=== PATIENT | female | born 1985 | race Hispanic/Latino ===

== ENCOUNTER 2018-05-07 21:56 | Emergency (ER) | payer OTHER ==
[2018-05-07 22:17] LABS: Bilirubin Negative (Negative); Blood, Urine Negative (Negative); Clarity Slightly Cloudy (Clear); Glucose, Urine (Dipstick) Negative (Negative); Leukocyte Negative (Negative); Nitrite Negative (Negative); Pregnancy Test - Urine (BHCG) POSITIVE (Negative); Pregu Control Background? CLEAR/WHITE (CLR/WHITE); Pregu Control Bar Appear? YES (CONTROL BAR); Protein, Urine (Dipstick) Negative (Neg-Trace)
== END 2018-05-07 22:53 | disposition home or self-care (01) ==
LOC: SCSER 21:56
DX: O26.891 Other specified pregnancy related conditions, first trimester (principal); R10.9 Unspecified abdominal pain; O99.341 Other mental disorders complicating pregnancy, first trimester; F41.9 Anxiety disorder, unspecified
CPT/HCPCS: 81003; 81025

== ENCOUNTER 2018-07-08 15:46 | Outpatient (CLI) | payer OTHER ==
--- NOTE | 2018-07-08 17:21 | ULT ---
OB ULTRASOUND: HISTORY: Size and dates. FINDINGS: A single live intrauterine gestation is seen with measurements corresponding to an estimated gestatio nal age of 24 weeks 1 day and an ANDRE of 10/27/2018. The estimated weight measures 672 g (1 lb 8 oz). measurements are as follows: BPD: 5.59 cm (23 weeks 1 day). HC: 21.99 cm (24 weeks 1 day). AC: 19.31 cm (24 weeks 1 day). FL: 4.45 cm (24 weeks 5 days). heart rate measures 152 beats per minute. The placenta is anteriorly located without evidence of placenta previa. NIKA measures 14.4 cm. Three-vessel cord, cord insertion, kidneys, bladder, stomach, four-chambered heart, lateral carri tricles, cerebellum, spine, lips/nose, and upper and lower extremities are visualized. No definite f etal anomalies are seen. IMPRESSION: Single live intrauterine of 24 weeks 1 day estimated gestational age and an estimated date of delivery of 10/27/2018. POS: OFF
== END 2018-07-08 15:47 | disposition home or self-care (01) ==
LOC: BICULT 15:46
PROVIDERS: ATTEND Family Medicine
DX: Z34.82 Encounter for supervision of other normal pregnancy, second trimester (principal); Z3A.24 24 weeks gestation of pregnancy
CPT/HCPCS: 76805

== ENCOUNTER 2018-08-06 15:50 | Outpatient (CLI) | payer OTHER ==
--- NOTE | 2018-08-06 16:13 | ULT ---
LIMITED RIGHT AXILLARY ULTRASOUND 08/06/18 PROVIDED CLINICAL HISTORY: Right axillary mass. FINDINGS: Limited sonographic interrogation was performed in the right axilla in the region of palpable concern . The sonographic appearance of the soft tissues in this region is normal. IMPRESSION: No sonographic abnormality is evident in the region of the clinical concern. Negative imaging finding s should not preclude further evaluation of a clinically suspicious area. The patient is referred yobani to her clinician. POS: OFF
== END 2018-08-06 15:51 | disposition home or self-care (01) ==
LOC: BICULT 15:50
PROVIDERS: ATTEND Family Medicine
DX: R22.31 Localized swelling, mass and lump, right upper limb (principal)

== ENCOUNTER 2018-10-11 19:09 | Inpatient (IN) | payer OTHER, SELFPAY ==
[~2018-10-11 19:09] MED LIST: Bupivacaine/Epinephrine 0.25% 30 ML VIAL ONE
[2018-10-11 19:56] VITALS: BMI 31.8
[2018-10-11] MEDS ORDERED: Lidocaine 1% (PF) 30 ML VIAL SC PRN (20:37)
[2018-10-11] MEDS ORDERED: Promethazine HCl 25 MG/ML VIAL IM PRN ×2 (20:37→21:30)
[2018-10-11] MEDS ORDERED: Carboprost 250 MCG/ML AMP IM PRN (20:37)
[2018-10-11] MEDS ORDERED: Ibuprofen 800 MG TAB PO PRN (20:37)
[2018-10-11] MEDS ORDERED: Misoprostol 200 MCG TAB PR PRN (20:37)
[2018-10-11] MEDS ORDERED: HYDROcodone/Acetaminophen 5/325 mg Tablet PO PRN (20:37)
[2018-10-11] MEDS ORDERED: Diphenoxylate HCl/Atropine Tablet PO PRN (20:37)
[2018-10-11] MEDS ORDERED: Ondansetron PF 4 MG/2 ML Vial IVP PRN ×2 (20:37→21:30)
[2018-10-11] MEDS ORDERED: Methylergonovine 0.2 MG/ML VIAL IM PRN (20:37)
[2018-10-11] MEDS ORDERED: Butorphanol Tartrate 1 MG/ML VIAL SLOW IVP PRN (20:37)
[2018-10-11] MEDS ORDERED: Lactated Ringer's 1,000 ML IV SCH (20:45)
[2018-10-11] MEDS ORDERED: Penicillin G Potassium 5 MILL.UNITS in Sodium Chloride 0.9% 100 ML IVPB SCH (20:45)
[2018-10-11] MEDS ORDERED: NS w/ Oxytocin 10 units 500 ML IV SCH ×2 (20:45)
[2018-10-11 21:15] LABS: Hemoglobin 13.5 g/dL (12.0-16.0); Mean Corpuscular Hemoglobin 29.8 pg (27.0-31.0); Mean Corpuscular Volume 87.5 fL (78.0-98.0); Mean Platelet Volume 9.1 fL (7.4-10.4); Platelet Count 235 thou/uL (130-400); RBC Distribution Width 12.2 % (11.5-14.5); Red Blood Cell (RBC) Count 4.53 mill/uL (4.20-5.40); White Blood Cell (WBC) Count 9.6 thou/uL (4.8-10.8)
[2018-10-11] MEDS ORDERED: Fentanyl 4 mcg/Bup 0.1% Cadd 100 ML ONE (21:22)
[2018-10-11] MEDS ORDERED: ePHEDrine/0.9% NaCl/PF SYRINGE 50 mg/10 ml SLOW IVP PRN (21:30)
[2018-10-11] MEDS ORDERED: Lactated Ringer's 500 ML IV PRN (21:30)
[2018-10-11] MEDS ORDERED: Communication Order-Pharmacy FS SCH (21:30)
[2018-10-11] MEDS ORDERED: diphenhydrAMINE 50 MG/ML VIAL IVP PRN (21:30)
[2018-10-11] MEDS ORDERED: Acetaminophen 325 MG TAB PO PRN (21:30)
[2018-10-11] MEDS ORDERED: Naloxone HCl 0.4 mg/ml Vial IVP PRN ×2 (21:30)
[2018-10-11] MEDS ORDERED: Fentanyl 4 mcg/Bupivacaine 0.1% Cassette 100 ML EPIDURAL SCH (21:30)
[2018-10-11 21:54] LABS: Syphilis Antibody Nonreactive (Nonreactive); Syphilis Antibody Index 0.05 S/CO (<1.00 Non-Reactive)
[2018-10-11] MEDS: NS / Oxytocin 40 units/1000ml 1,000 ML IV PRN (23:30)
--- NOTE | 2018-10-11 23:33 | PDOC.OPDEL ---
OB Operative/Delivery Note Delivery Dr/Surgeon: Wood (Courtesy, for Dr nazario) Assist: None Pre-Delivery Diagnosis: active labor (Multip) Procedure/Post Delivery Dx: spontaneous vaginal delivery (at 2326 or so) Weeks gestation: 37 Anesthesia: epidural - Findings A Sex: male - 1 min: 8 - 5 min: 9 - Additional Findings/Plan Placenta delivered: spontaneous (Franchesca mechanism, about 1-2 minutes after baby) Repaired Obstetrical Laceration: none Estimated blood loss: 100 Compilations/Other Findings: no complication baby was vigorous at ; delayed cord clamp done for 30 sec. baby was OA. No NC..all counts correct, no lacs, no vag packs Post delivery plan: routine recovery
[2018-10-12 01:00] LABS: HBSAg Index 0.34 S/CO (0-0.99); Hep B Surf Ag Non-Reactive S/CO (NonReactive)
[2018-10-12] MEDS ORDERED: Penicillin G 2.5 MILL.units 2.5 MILL.UNITS in Premix Bag 1 BAG IVPB SCH (01:00)
[2018-10-12] MEDS: NS / Oxytocin 40 units/1000ml 1,000 ML IV PRN (01:13)
[2018-10-12] MEDS ORDERED: Milk Of Magnesia 30 ML UDCUP PO PRN (01:50)
[2018-10-12] MEDS ORDERED: NS / Oxytocin 40 units/1000ml 1,000 ML IV SCH (01:50)
[2018-10-12] MEDS ORDERED: HYDROcodone/Acetaminophen 5/325 mg Tablet PO PRN ×2 (01:50)
[2018-10-12] MEDS ORDERED: Bisacodyl 10 MG SUPP PR PRN (01:50)
[2018-10-12] MEDS ORDERED: Ondansetron PF 4 MG/2 ML Vial IVP PRN (01:50)
[2018-10-12] MEDS ORDERED: diphenhydrAMINE 25 MG CAP PO PRN (01:50)
[2018-10-12] MEDS ORDERED: Lanolin Ointment 7 GM TUBE TOP PRN (01:50)
[2018-10-12] MEDS ORDERED: Benzocaine-Menthol 82.5 ML CAN TOP PRN (01:50)
[2018-10-12] MEDS: Ibuprofen 800 MG TAB PO SCH ×3 (05:47→22:00)
[2018-10-12 06:05] LABS: Hemoglobin 11.7 g/dL (12.0-16.0); Mean Corpuscular HGB CONC 33.2 g/dL (32.0-36.0); Mean Corpuscular Hemoglobin 29.4 pg (27.0-31.0); Mean Corpuscular Volume 88.5 fL (78.0-98.0); Mean Platelet Volume 9.1 fL (7.4-10.4); Platelet Count 188 thou/uL (130-400); Red Blood Cell (RBC) Count 3.98 mill/uL (4.20-5.40)
[2018-10-12] MEDS: Docusate Calcium (SURFAK) 240 MG CAP PO SCH ×2 (08:12→22:00)
[2018-10-12] MEDS: Prenatal Vitamin 1 TAB PO SCH (08:12)
[2018-10-12] MEDS: Ferrous Sulfate 325 MG TAB PO SCH ×2 (08:13→17:29)
[2018-10-13] MEDS: Ibuprofen 800 MG TAB PO SCH ×2 (05:02→14:21)
[2018-10-13] MEDS: Ferrous Sulfate 325 MG TAB PO SCH ×2 (07:37→16:41)
[2018-10-13] MEDS: Docusate Calcium (SURFAK) 240 MG CAP PO SCH (09:41)
[2018-10-13] MEDS: Prenatal Vitamin 1 TAB PO SCH (09:41)
[2018-10-13 17:26] VITALS: TEMP 98.6
[2018-10-13 18:00] VITALS: BP 141/79
== END 2018-10-13 21:00 | disposition home or self-care (01) | DRG 807 ==
LOC: L&D/OP 19:09 → L&D 21:51 → 3SW 10-12 02:28
PROVIDERS: ADMIT Family Medicine; ATTEND Family Medicine
PROC: 10E0XZZ Delivery of Products of Conception, External Approach (ICD-10-PCS; principal; 2018-10-11)
DX: O24.429 Gestational diabetes mellitus in childbirth, unspecified control (principal); Z37.0 Single live birth; O99.824 Streptococcus B carrier state complicating childbirth; Z3A.37 37 weeks gestation of pregnancy
CPT/HCPCS: 36415; 51702; 85027; 86780; 86850; 86900; 86901; 87340; 99285; J2540; J2590; J3490

== ENCOUNTER 2019-03-15 17:11 | Emergency (ER) | payer MEDICAID, SELFPAY ==
[2019-03-15] MEDS ORDERED: Ketorolac Tromethamine 60 MG/2 ML VIAL ONE (17:58)
--- NOTE | 2019-03-15 18:10 | RAD ---
RADIOGRAPH CHEST 1 VIEW: DATE: 03/15/2019 HISTORY: 34-year-old female with cough FINDINGS: The visualized lung mazariegos are clear. The cardiomediastinal silhouette and hilar shadows are normal. The lateral costophrenic angles are sharp. The osseous structures appear normal. There is no pneumothorax. IMPRESSION: Negative.
== END 2019-03-15 18:40 | disposition home or self-care (01) ==
LOC: ERS 17:11
DX: H65.93 Unspecified nonsuppurative otitis media, bilateral (principal); R09.81 Nasal congestion; R05 Cough; F41.9 Anxiety disorder, unspecified
CPT/HCPCS: 71045; J1885

== ENCOUNTER 2020-07-16 09:43 | Emergency (ER) | payer SELFPAY ==
[2020-07-16] MEDS ORDERED: Ketorolac Tromethamine 30 MG/ML VIAL ONE (10:28)
[2020-07-16] MEDS ORDERED: Ondansetron PF 4 MG/2 ML Vial ONE (10:28)
[2020-07-16 10:30] LABS: #Eosinphils 0.1 thou/uL (0.0-0.7); #Monocytes 0.5 thou/uL (0.11-0.59); #Neutrophils 4.6 thou/uL (1.40-6.50); %Basophils 0.3 % (0.0-1.0); %Eosinophils 1.4 % (0.0-10.0); %Lymphocytes 36.1 % (21.0-51.0); %Monocytes 5.8 % (0.0-10.0); %Neutrophils 56.4 % (42.0-75.0); Hemoglobin 13.7 g/dL (12.0-16.0); Mean Corpuscular HGB CONC 34.4 g/dL (32.0-36.0); Mean Corpuscular Hemoglobin 30.4 pg (27.0-31.0); Mean Corpuscular Volume 88.4 fL (78.0-98.0); Mean Platelet Volume 7.1 fL (7.4-10.4); Platelet Count 325 thou/uL (130-400); RBC Distribution Width 11.3 % (11.5-14.5); Red Blood Cell (RBC) Count 4.52 mill/uL (4.20-5.40); White Blood Cell (WBC) Count 8.2 thou/uL (4.8-10.8)
[2020-07-16 10:31] LABS: Bacteria/HPF None Seen HPF (None Seen); Bilirubin Negative (Negative); Blood, Urine Negative (Negative); Clarity Turbid (Clear); Glucose, Urine (Dipstick) Normal (Negative); Ketone, Urine Negative (Negative); Leukocyte 250 Leu/uL (Negative); Nitrite Negative (Negative); Protein, Urine (Dipstick) 10 mg/dL (Neg-Trace); RBC/HPF 0-3 HPF (0-3); Specific Gravity, Urine 1.024 (1.002-1.036); Squamous Epithelial 21-50 HPF (0-3); Urobilinogen Normal mg/dL (Less than 2); pH, Urine 6.5 (5.0-9.0)
[2020-07-16 10:36] LABS: BHCG - Serum Negative (NEGATIVE); Pregs Control Background? CLEAR/WHITE (CLR/WHITE); Pregs Control Bar Appear? YES (CONTROL BAR)
[2020-07-16 10:54] LABS: ALT (SGPT) 52 U/L (8-55); AST (SGOT) 18 U/L (5-34); Albumin 4.2 g/dL (3.5-5.0); Alkaline Phosphatase 98 U/L (40-110); Anion Gap 13 mmol/L (10-20); BUN (Urea Nitrogen) 6 mg/dL (7.0-18.7); Bilirubin, Total 0.6 mg/dL (0.2-1.2); Calc. Creatinine Clearance 0 mL/min (70-130); Calcium 9.2 mg/dL (7.8-10.44); Carbon Dioxide 23 mmol/L (22-29); Chloride 106 mmol/L (98-107); Glucose 104 mg/dL (70-105); Potassium 4.2 mmol/L (3.5-5.1); Protein, Total 7.2 g/dL (6.0-8.3); Sodium 138 mmol/L (136-145)
== END 2020-07-16 13:20 | disposition home or self-care (01) ==
LOC: ERS 09:43
DX: N39.0 Urinary tract infection, site not specified (principal)
CPT/HCPCS: 36415; 74176; 80053; 81003; 81015; 84703; 85025; 87086; 96374; 96375; J1885; J2405